=== PATIENT | male | born 1960 | race Hispanic/Latino ===

== ENCOUNTER 2017-07-22 14:43 | Inpatient (IN) | payer OTHER ==
--- NOTE | 2017-07-22 15:44 | RAD ---
CHEST ONE VIEW: Date: 07-22-17 Time: 4:34 p.m. History: Chest pain. FINDINGS: Comparison is made with exam dated 06-10-12. The heart size is normal. The aorta is tortuous. The lungs are expanded without focal areas of consol idation, pneumothorax, or pleural effusions. IMPRESSION: No radiographic evidence of acute cardiopulmonary process. POS: [facility]
[2017-07-22 16:31] LABS: #Eosinphils 0.2 thou/uL (0.0-0.7); #Lymphocytes 2.1 thou/uL (1.20-3.40); #Monocytes 0.4 thou/uL (0.11-0.59); #Neutrophils 6.3 thou/uL (1.40-6.50); %Basophils 0.3 % (0.0-1.0); %Eosinophils 1.9 % (0.0-10.0); %Lymphocytes 23.6 % (21.0-51.0); %Monocytes 4.6 % (0.0-10.0); Hematocrit 43.2 % (42.0-52.0); Mean Platelet Volume 8.3 fL (7.4-10.4); Red Blood Cell (RBC) Count 4.98 mill/uL (4.70-6.10)
[2017-07-22 16:53] LABS: ALT (SGPT) 22 U/L (8-55); AST (SGOT) 17 U/L (5-34); Alkaline Phosphatase 100 U/L (40-150); Anion Gap 14 mmol/L (10-20); BUN (Urea Nitrogen) 26 mg/dL (8.4-25.7); Bilirubin, Total 0.3 mg/dL (0.2-1.2); CK (CPK) 100 U/L (30-200); Calc. Creatinine Clearance 0 mL/min (70-130); Carbon Dioxide 26 mmol/L (22-29); Chloride 103 mmol/L (98-107); Estimated GFR-MDRD 48; Lipase 16 U/L (8-78); Protein, Total 8.7 g/dL (6.0-8.3)
[2017-07-22] MEDS ORDERED: Nitroglycerin 0.4 MG TAB (25 Tab Bottle) ONE (18:04)
[2017-07-22] MEDS ORDERED: Ondansetron ODT 4 MG TAB SL PRN (19:23)
[2017-07-22] MEDS ORDERED: Ondansetron HCl/PF 4 MG/2 ML Vial IVP PRN (19:23)
[2017-07-22 20:21] LABS: Troponin I 0.055 ng/mL (< 0.028)
[2017-07-22] MEDS ORDERED: Dextrose 5% in Water 1,000 ML IV PRN (20:48)
[2017-07-22] MEDS ORDERED: Dextrose 50% Abboject 50 ML SYRINGE SLOW IVP PRN (20:48)
[2017-07-22] MEDS ORDERED: HumaLOG 300 UNITS/3 ML VIAL SC PRN (20:48)
[2017-07-22] MEDS ORDERED: Losartan Potassium 25 MG TAB PO SCH (21:00)
[2017-07-22] MEDS ORDERED: metFORMIN 500 MG TAB PO SCH (21:00)
--- NOTE | 2017-07-22 21:23 | HP ---
PRIMARY CARE PHYSICIAN: Aminah Tariq M.D. CHIEF COMPLAINT: Chest pain. HISTORY OF PRESENT ILLNESS: Mr. Aleman is a pleasant 56-year-old gentleman who was seen at [facility] on 07/22/2017. He reports developing retrosternal chest discomfort yeste rday. He describes it as a sensation of tightness, radiating to his shoulders and arms. He also rep orts pain in his ear. He reports that it was on and off. No known aggravating factors, but relieved by nitrates in the emergency room, accompanied by shortness of breath, lightheadedness, and diaphore sis. He came to the emergency room because of ongoing chest discomfort. He has not been taking his medications for 1 week because he ran out of his medications and did not g et a chance to get it refilled. PAST MEDICAL HISTORY: Significant for diabetes mellitus type 2 and hypertension. PAST SURGICAL HISTORY: Significant for appendectomy and rectal abscess surgery. SOCIAL HISTORY: Occasional alcohol use. No history of tobacco use or recreational drug use. FAMILY HISTORY: He has a brother who had a coronary artery bypass graft. ALLERGIES: No known drug allergies. CURRENT MEDICATIONS: As mentioned earlier, he has not been taking his medications. He is supposed t o be on metformin, Nexium, and losartan. PHYSICAL EXAMINATION: GENERAL: Mr. Aleman is awake and alert, not in acute distress. VITAL SIGNS: Blood pressure is 134/85, pulse is 70, he is breathing at rate of 16, and saturating 95 % on room air. He is afebrile. EYES: No scleral icterus. No conjunctival pallor. ENT: Moist mucosal membranes. No oropharyngeal erythema or exudates. NECK: Supple, nontender, normal range of movement. Trachea is midline. RESPIRATORY: Accessory muscles of breathing are not active. Chest wall movements are symmetric bila terally. LUNGS: Clear to auscultation without wheeze, rhonchi or crepitations. CARDIOVASCULAR: S1 and S2 are heard, tachycardic. Peripheral pulses palpable. No carotid bruit, no pericardial rub. ABDOMEN: Soft, nontender, bowel sounds heard, no hepatomegaly, no splenomegaly. NEUROLOGIC: Cranial nerves II-XII are intact. Deep tendon reflexes are 2+. PSYCHIATRIC: Normal mood, normal affect, patient is oriented to person, place, and time. SKIN: No rashes or subcutaneous nodules. MUSCULOSKELETAL: Power is 5/5 in all 4 extremities. Normal range of movement at all major extremity joints. LABORATORY DATA: Mr. Aleman labs and investigations were reviewed. I reviewed his electrocardiog ochoa, which shows normal sinus rhythm. He has T-wave inversions in the anterior lateral leads as well as inferior leads. I also reviewed his chest x-ray, which does not show any pulmonary infiltrates. He has a normal CBC, normal electrolytes, elevated blood urea nitrogen of 26, elevated creatinine of 1.50, last known creatinine normal at 1.13 on 10/30/2016, indeterminate troponin I of 0.055, unremar kable liver profile and normal lipase. ASSESSMENT AND PLAN: Mr. Aleman is a pleasant 56-year-old gentleman who was seen at [facility] on 07/22/2017. His problem list includes: 1. Chest pain: His presentation is concerning for cardiac chest pain. He does have EKG changes. H e will be admitted to the hospital for telemetry monitoring. I will also request a nuclear stress te st. Further workup depending on the outcome of the test. 2. Acute kidney injury: We will provide hydration for most likely prerenal acute renal failure. We will recheck creatinine and electrolytes. 3. Diabetes mellitus type 2, start Accu-Cheks, insulin sliding scale. 4. Hypertension: Monitor vital signs, titrate antihypertensives as needed. Many thanks for allowing me to participate in your patient's care. Please feel free to contact me wi th any questions or concerns. LEVEL OF RISK: High. LEVEL OF COMPLEXITY: High.
[2017-07-22 21:40] VITALS: BMI 27.2
[2017-07-22] MEDS: Sodium Chloride 0.9% 1,000 ML IV SCH (22:06)
[2017-07-22] MEDS: Acetaminophen 325 MG TAB PO PRN (22:11)
[2017-07-22 22:54] LABS: Troponin I 0.056 ng/mL (< 0.028)
[2017-07-22] MEDS: Nitroglycerin 0.4 MG TAB (25 Tab Bottle) PO PRN ×3 (23:01→23:14)
[2017-07-22] MEDS ORDERED: Enoxaparin Sodium 40 MG/0.4 ML SYRINGE SC SCH (23:15)
[2017-07-22] MEDS: Nitroglycerin 2% Ointment 1 INCH/1 GM Packet TOP SCH (23:23)
[2017-07-23] MEDS: Nitroglycerin 2% Ointment 1 INCH/1 GM Packet TOP SCH ×2 (04:01→12:47)
[2017-07-23 04:33] LABS: #Basophils 0.1 thou/uL (0.0-0.2); #Eosinphils 0.2 thou/uL (0.0-0.7); #Monocytes 0.3 thou/uL (0.11-0.59); #Neutrophils 5.2 thou/uL (1.40-6.50); %Basophils 0.7 % (0.0-1.0); %Eosinophils 2.9 % (0.0-10.0); %Lymphocytes 25.5 % (21.0-51.0); %Monocytes 3.7 % (0.0-10.0); Hematocrit 37.6 % (42.0-52.0); Mean Platelet Volume 8.5 fL (7.4-10.4); Red Blood Cell (RBC) Count 4.33 mill/uL (4.70-6.10); White Blood Cell (WBC) Count 7.8 thou/uL (4.8-10.8)
[2017-07-23 04:52] LABS: Anion Gap 9 mmol/L (10-20); BUN (Urea Nitrogen) 24 mg/dL (8.4-25.7); Calc. Creatinine Clearance 98 mL/min (70-130); Calcium 8.7 mg/dL (7.8-10.44); Carbon Dioxide 25 mmol/L (22-29); Chloride 106 mmol/L (98-107); Estimated GFR-MDRD 88
[2017-07-23 04:59] LABS: Troponin I 0.087 ng/mL (< 0.028)
[2017-07-23] MEDS: Acetaminophen 325 MG TAB PO PRN (07:46)
[2017-07-23] MEDS ORDERED: metFORMIN 500 MG TAB PO SCH (08:00)
[2017-07-23] MEDS ORDERED: Losartan Potassium 25 MG TAB PO SCH (09:00)
[2017-07-23] MEDS ORDERED: FLU VACC QS2017-18 36 mo. & older 0.5 ML SYRINGE IM ONE (09:00)
[2017-07-23] MEDS ORDERED: Aspirin 325 MG TAB PO SCH (09:00)
--- NOTE | 2017-07-23 09:54 | PDOC.PN ---
- Subjective Encounter Start Date: 07/23/17 Encounter Start Time: 08:52 Subjective: Seen and examined developed STEMI while undergoing stress test - Objective Vital Signs & Weight: Vital Signs (12 hours) Temp Pulse Resp BP BP Pulse Ox 07/23/17 07:21 97.7 F 63 16 122/65 99 07/23/17 03:39 98.0 F 70 16 122/76 99 07/23/17 01:59 97 07/22/17 23:25 69 16 134/74 97 07/22/17 23:14 76 134/77 97 07/22/17 23:06 71 146/85 H 07/22/17 22:58 76 16 223/89 H 98 I&O: 07/22/17 07/23/17 07/24/17 06:59 06:59 06:59 Intake Total 1019 Output Total 325 Balance 694 Result Diagrams: 07/23/17 11:53 07/23/17 03:38 Additional Labs: Accuchecks 07/22/17 20:49 POC Glucose 166 H Phys Exam - Physical Examination Constitutional: NAD HEENT: PERRLA, moist MMs, sclera anicteric, TM's clear, oral pharynx no lesions Neck: no nodes, no JVD, supple, full ROM Respiratory: no wheezing, no rales, no rhonchi, clear to auscultation bilateral Cardiovascular: RRR, no significant murmur, no rub Gastrointestinal: soft, non-tender, no distention, positive bowel sounds Musculoskeletal: no edema, pulses present Dx/Plan (1) STEMI (ST elevation myocardial infarction) Status: Acute (2) 3-vessel coronary artery disease Status: Acute (3) Diabetes 1.5, managed as type 2 Code(s): E10.9 - TYPE 1 DIABETES MELLITUS WITHOUT COMPLICATIONS Status: Acute - Plan plan discussed w/ family, PT/OT, public health social worker Emergent CABG per cardiology/[facility] * .
[2017-07-23] MEDS ORDERED: Heparin 1000 UNIT/NS 500ML(OR) 1,000 ML ONE (10:54)
[2017-07-23] MEDS ORDERED: Heparin 10,000 UNITS/1 ML VIAL ONE (11:21)
[2017-07-23] MEDS ORDERED: Nitroglycerin 50 MG/250 ML BOT 250 ML ONE (11:21)
[2017-07-23] MEDS ORDERED: Heparin 1000 UNIT/NS 500ML(OR) 500 ML ONE (11:24)
[2017-07-23] MEDS ORDERED: Nitroglycerin 0.4 MG TAB (25 Tab Bottle) SL PRN (11:37)
[2017-07-23] MEDS ORDERED: traMADol HCl 50 MG TAB PO PRN (11:37)
[2017-07-23] MEDS ORDERED: Acetaminophen/Codeine 30-300mg Tablet PO PRN ×2 (11:37)
[2017-07-23] MEDS ORDERED: Sodium Chloride 0.9% 1,000 ML IV SCH (11:45)
[2017-07-23] MEDS ORDERED: Heparin 10,000 UNITS/ 10 ML VIAL SLOW IVP SCH (11:45)
[2017-07-23] MEDS ORDERED: Heparin 25,000 units/D5W 500 ML IVPB SCH (11:45)
[2017-07-23] MEDS ORDERED: Sodium Chloride 0.9% 200 ML IV SCH (11:45)
[2017-07-23 11:57] LABS: Hematocrit 41.4 % (42.0-52.0)
[2017-07-23] MEDS ORDERED: Communication Order-Pharmacy FS ONE (12:18)
[2017-07-23] MEDS ORDERED: Nitroglycerin 4.9 GM Bottle ONE (12:20)
[2017-07-23 12:27] LABS: PTT 177.9 SEC (22.9-36.1)
--- NOTE | 2017-07-23 12:32 | CON ---
DATE OF CONSULTATION: 07/23/2017 REASON FOR CONSULTATION: ST segment elevation. REFERRING PROVIDER: Dr. Khalil. HISTORY OF PRESENT ILLNESS: Mr. Aleman is a pleasant 56-year-old gentleman with past medical hist ory of diabetes mellitus and hypertension who recently complained of chest pain. He states he has crouch d an intermittent chest pain over the last several weeks. The pain was described as retrosternal wit h radiation to his neck and jaw. His CK and troponins were in the indeterminate range. He underwent a noninvasive stress study after his EKG suggested LVH. He did well. Shortly after the stress, he developed ST segment elevation and was brought urgently for coronary angiography. PAST MEDICAL HISTORY: As above. PAST SURGICAL HISTORY: Appendectomy and rectal abscess. SOCIAL HISTORY: No current tobacco or alcohol use. FAMILY HISTORY: Positive for CAD. ALLERGIES: None. HOME MEDICATIONS: He is off all medications. REVIEW OF SYSTEMS: Ten-point review of systems is reviewed and as above, otherwise negative. PHYSICAL EXAMINATION: GENERAL: Patient is a pleasant male who is in no acute distress. The patient appears his stated age . VITAL SIGNS: Blood pressure 122/65, pulse 62, temperature 97.7 NEUROLOGIC: The patient is alert and oriented times 3 with no focal neurologic deficits. HEENT: Sclerae without icterus. Mouth has moist mucous membranes with normal pallor. NECK: No JVD. Carotid upstroke brisk. No bruits bilaterally. LUNGS: Clear to auscultation with unlabored respirations. BACK: No scoliosis or kyphosis. CARDIAC: Regular rate and rhythm with normal S1 and S2. No S3 or S4 noted. No significant rubs, mu rmurs, thrills, or gallops noted throughout the precordium. PMI is not displaced. There is no nino ternal heave. ABDOMEN: Soft, nontender, nondistended. No peritoneal signs present. No hepatosplenomegaly. No ab normal striae. EXTREMITIES: 2+ femoral and 2+ dorsalis pedis pulses. No cyanosis, clubbing, or edema. SKIN: No gross abnormalities. PERTINENT LABORATORY DATA: Peak troponin 0.08. IMPRESSION: ST segment elevation myocardial infarction. RECOMMENDATIONS: The patient was brought urgently for coronary angiography. I consent the patient f or the procedure, risks include but are not limited. I discussed the procedure in full detail with the patient. The risks of the procedure were also disc ussed. The risks of the procedure include but are not limited to the following: , stroke, [place], need for emergency surgery, loss of limb, bleeding, and infection, as well as a reaction to the dye c ausing kidney failure and needing long-term dialysis. I also discussed the risks of PCI to include a ll of the above including coronary dissection and perforation in addition to acute stent thrombosis a nd restenosis. All questions about the procedure were answered. Given the above, the patient agreed to proceed with coronary angiography and possible PCI. After angiography was performed urgently. He was found to have severe 3-vessel disease. He was pain free with resolution of his ST segments. CV Surgery was consulted. He was placed on IV heparin in addition to nitroglycerin and placed in the ICU. Again, he is currently pain free with surgery antic ipated.
--- NOTE | 2017-07-23 12:37 | EKG ---
Test Reason : STAT Blood Pressure : / mmHG Vent. Rate : 066 BPM Atrial Rate : 066 BPM P-R Int : 160 ms QRS Dur : 094 ms QT Int : 414 ms P-R-T Axes : 084 016 -50 degrees QTc Int : 434 ms Normal sinus rhythm Inferior infarct , age undetermined cannot be excluded Abnormal ECG Confirmed by OLAYINKA CHERRY ([id number]) on 07/23/2017 12:36:49 PM Referred By: SARAH Confirmed By:OLAYINKA CHERRY
[2017-07-23] MEDS: Sodium Chloride 0.9% 1,000 ML IV SCH ×2 (12:45→22:07)
--- NOTE | 2017-07-23 12:57 | CON ---
DATE OF CONSULTATION: 07/23/2017 REASON FOR CONSULTATION: Evaluation for urgent coronary artery bypass surgery. PERTINENT HISTORY: The patient is a 56-year-old male who presented yesterday with acute coronary syndrome. Peak troponin I appears to have been 0.087. He did have chest pain through the evening. This morning, during nuclear stress test, he had return of significant pain associated with dramatic interior ST- segment elevation. He was immediately taken to the catheterization lab with findings of severe 3-vessel disease including a subtotal distal RCA stenosis. EKG changes and pain did resolve with intravenous heparin and nitroglycerin. The patient is now referred for urgent coronary artery bypass surgery. PAST MEDICAL HISTORY: 1. Hypertension. 2. Diabetes. 3. GERD. PAST SURGICAL HISTORY: 1. I and D perirectal abscess. 2. Laparoscopic appendectomy. ALLERGIES: None. SOCIAL HISTORY: Non-smoker. Occasional alcohol use. FAMILY HISTORY: Noncontributory for coronary artery disease. REVIEW OF SYSTEMS: No history of documented dyslipidemia, kidney or liver disease, TIA or CVA, or claudication. MEDICATIONS PRIOR TO ADMISSION: Nexium, metformin, losartan. CURRENT MEDICATIONS: Aspirin, heparin and nitroglycerin drips, losartan, metformin, Protonix, and multiple p.r.n. medications. LABORATORY DATA AND X-RAY FINDINGS: Creatinine 0.89. Hemoglobin 14.1. Platelet count 253,000. Chest x-ray shows no acute process. PHYSICAL EXAMINATION: VITAL SIGNS: Height 5 feet 6 inches, weight 168 pounds, blood pressure 170/82, heart rate 72, temperature 97.7. GENERAL: A well-developed, well-nourished male, currently in no acute distress. He is fully oriented. He is a partial Singaporean speaker with additional details provided by his who is more fluent in Singaporean. HEENT: Grossly unremarkable. NECK: Without JVD or adenopathy. LUNGS: Clear anteriorly. HEART: Regular rate and rhythm without murmur or rub. ABDOMEN: Soft and nontender, without palpable mass. EXTREMITIES: Without edema. VASCULAR: Palpable radial pulses. Right femoral arterial calf sheath is in place. Left femoral pulse is palpable. Popliteal and ankle pulses are palpable bilaterally. No carotid bruits were appreciated. Abdominal aorta is palpably nonenlarged. NEUROLOGIC: No focal deficits. IMPRESSION: Aborted inferior ST-segment elevation myocardial infarction, severe 3-vessel coronary artery disease, and unknown left ventricular function. RECOMMENDATIONS: Obtain immediate transthoracic echo. Should this document reasonably preserved left ventricular function, proceed to urgent coronary artery bypass surgery this afternoon. The indications, benefits, alternatives, and risks of coronary artery bypass surgery were explained in detail to the patient and his . All questions were answered. The patient agrees to proceed without reservations. TARA
[2017-07-23] MEDS ORDERED: Nitroglycerin 50 MG/250 ML BOT 250 ML IVPB SCH (13:15)
--- NOTE | 2017-07-23 14:00 | NM ---
REST ONLY MYOCARDIAL PERFUSION EVALUATION: INDICATION: Chest pain. RADIOPHARMACEUTICAL: 9.8 mCi of Technetium 99m sestamibi IV. FINDINGS: Rest-only images demonstrate a large-size radiotracer defect involving the inferior wall and inferior aspect. The patient had suspicious EKG changes during the examination and the examination was termi nated so the patient could be transported to the recyclable materials sorter by Dr. mSith. IMPRESSION: Abnormal rest-only evaluation with a large defect involving the inferior wall and apex. POS: [facility]
[2017-07-23] MEDS ORDERED: Vecuronium 10 MG VIAL ONE (14:22)
[2017-07-23] MEDS ORDERED: Lidocaine 2% PF 100 mg/5 ml Syringe ONE (14:22)
[2017-07-23] MEDS ORDERED: Protamine Sulfate 250 MG/25 ML VIAL ONE (14:22)
[2017-07-23] MEDS ORDERED: Papaverine 60 MG/2 ML VIAL ONE (14:22)
[2017-07-23] MEDS ORDERED: Cardioplegic Soln 1,000 ML BAG ONE (14:22)
[2017-07-23] MEDS ORDERED: Thrombin 5000 UNITS/5 ML VIAL ONE (14:22)
[2017-07-23] MEDS ORDERED: Aminocaproic Acid 5 GM/20 ML VIAL ONE (14:22)
[2017-07-23] MEDS ORDERED: Magnesium 5 GM/10 ML VIAL ONE (14:22)
[2017-07-23] MEDS ORDERED: Propofol 200 MG/20 ML VIAL ONE (14:22)
[2017-07-23] MEDS ORDERED: Mannitol 12.5 GM/50 ML ONE (14:22)
[2017-07-23] MEDS ORDERED: Heparin 30,000 units/30 ml VIAL ONE (14:22)
[2017-07-23] MEDS ORDERED: Sodium Bicarb 50 MEQ/50 ML Abboject 8.4% SYRINGE ONE (14:22)
[2017-07-23] MEDS ORDERED: Lidocaine 1% PF 5 ML VIAL ONE (14:22)
[2017-07-23] MEDS ORDERED: PHENYLEPHRINE-NS 100 MCG/ML 10 ML SYRINGE ONE ×2 (14:22→18:46)
[2017-07-23] MEDS ORDERED: Heparin 5,000 UNITS/ML VIAL ONE (14:22)
[2017-07-23] MEDS ORDERED: DOPamine 400 MG/10 ML VIAL ONE (14:22)
[2017-07-23] MEDS ORDERED: Calcium Chloride 1 GM/10 ML Abboject SYRINGE ONE (14:22)
[2017-07-23] MEDS ORDERED: Potassium Chloride 60 MEQ/30 ML VIAL ONE (14:22)
[2017-07-23] MEDS ORDERED: CEFAZOLIN/Water 2 GM/20 ML SYRINGE SLOW IVP SCH (15:00)
[2017-07-23] MEDS ORDERED: CEFAZOLIN 2 GM in Sodium Chloride 0.9% 100 ML IVPB SCH (15:00)
[2017-07-23] MEDS ORDERED: Iopamidol 370 76% 100 ML VIAL ONE (15:42)
[2017-07-23] MEDS ORDERED: Heparin 10,000 UNITS/1 ML VIAL 30,000 UNITS in Sodium Chloride 0.9% 1,000 ML IVPB SCH (15:45)
[2017-07-23] MEDS ORDERED: Midazolam HCl 5 mg/5 ml Vial ONE (16:04)
[2017-07-23] MEDS ORDERED: Fentanyl 250 MCG/5 ML VIAL ONE (16:04)
[2017-07-23] MEDS ORDERED: ADENOSINE 60 MG/20 ML VIAL ONE (16:23)
[2017-07-23] MEDS ORDERED: Insulin Regular 300 UNITS/3 ML VIAL ONE (17:10)
[2017-07-23] MEDS ORDERED: Albumin 5% 0 ML ONE (17:11)
[2017-07-23] MEDS ORDERED: Rocuronium Bromide 50 MG/5 ML VIAL ONE (18:46)
[2017-07-23] MEDS ORDERED: Nitroglycerin 50 MG/250 ML BOT 250 ML IVPB PRN (20:46)
[2017-07-23] MEDS ORDERED: Guaifenesin DM 100-10/5 ML UDCUP PO PRN (20:46)
[2017-07-23] MEDS ORDERED: Bisacodyl 5 MG TAB PO PRN (20:46)
[2017-07-23] MEDS ORDERED: Promethazine HCl 25 MG/ML VIAL IM PRN (20:46)
[2017-07-23] MEDS ORDERED: Post-Op Insulin Drip Protocol IVPB ONE (20:46)
[2017-07-23] MEDS ORDERED: hydrALAZINE 20 MG/ML VIAL SLOW IVP PRN (20:46)
[2017-07-23] MEDS ORDERED: DOPamine 400 MG/D5W 250 ML 250 ML IVPB PRN (20:46)
[2017-07-23] MEDS ORDERED: HYDROcodone/Acetaminophen 5/325 mg Tablet PO PRN ×2 (20:46)
[2017-07-23] MEDS ORDERED: Acetaminophen 325 MG TAB PO PRN (20:46)
[2017-07-23] MEDS ORDERED: Mag-Al 1200 mg/1200 mg/30 ML UDCUP PO PRN (20:46)
[2017-07-23] MEDS ORDERED: Phenylephrine 10 MG/NS 250 ML 250 ML IVPB PRN (20:46)
[2017-07-23] MEDS ORDERED: Morphine 2 mg/2ml in 0.9% NaCl PF SYRINGE SLOW IVP PRN (20:46)
[2017-07-23] MEDS ORDERED: Bisacodyl 10 MG SUPP PR PRN (20:46)
[2017-07-23] MEDS ORDERED: Fentanyl 100 MCG/2 ML VIAL SLOW IVP PRN ×2 (20:46)
[2017-07-23] MEDS ORDERED: Ondansetron HCl/PF 4 MG/2 ML Vial IVP PRN (20:46)
[2017-07-23] MEDS ORDERED: Norepinephrine 8 MG/0.9% NS 250 ML IVPB PRN (20:46)
[2017-07-23] MEDS ORDERED: Enoxaparin Sodium 40 MG/0.4 ML SYRINGE SC SCH (21:00)
[2017-07-23 21:18] LABS: Mechanical Tidal Volume 500 ml; Oxyhemoglobin 97.6 % (94.0-97.0); Sodium 142 mmol/L (135-148); Vent YES
[2017-07-23 21:19] LABS: Mode SIMV; Pressure Support 10 cmH2O
[2017-07-23] MEDS ORDERED: Dextrose 5% in Water 1,000 ML IV PRN (21:24)
[2017-07-23] MEDS ORDERED: Dextrose 50% Abboject 50 ML SYRINGE SLOW IVP PRN (21:24)
[2017-07-23] MEDS ORDERED: Fentanyl 20 MCG/ML 250 ML IVPB SCH (21:34)
[2017-07-23] MEDS ORDERED: DISCONTINUE PREVIOUS NARCOTIC PAIN MEDICATIONS AND BENZODIAZEPINES FS SCH (21:34)
[2017-07-23] MEDS ORDERED: Lorazepam 2 MG/ML VIAL SLOW IVP PRN (21:34)
[2017-07-23] MEDS ORDERED: Propofol 1,000 MG/100 ML VIAL IV PRN (21:34)
[2017-07-23] MEDS ORDERED: Morphine 2 MG/ML SYRINGE IVP PRN (21:38)
[2017-07-23 21:43] LABS: PTT 28.5 SEC (22.9-36.1); Prothrombin Time 15.5 SEC (12.0-14.7)
[2017-07-23] MEDS ORDERED: Magnesium 2 GM/NS 0.9% 50 ML 2 GM in Premix Bag 1 BAG IVPB SCH (21:45)
[2017-07-23] MEDS ORDERED: Ventilator Sedation Protocol 1 EACH FS SCH (21:45)
[2017-07-23] MEDS ORDERED: Magnesium 2 GM/NS 0.9% 100 ML 2 GM in Premix Bag 1 BAG IVPB SCH (21:45)
[2017-07-23] MEDS ORDERED: Amiodarone In Dextrose,Iso-Osm 200 ML IVPB SCH (21:45)
[2017-07-23] MEDS ORDERED: Amiodarone HCl 150 MG, Admixture Fee 1 EACH in Dextrose 5% in Water 100 ML IVPB SCH ×3 (21:45)
[2017-07-23 21:49] LABS: Mean Platelet Volume 8.2 fL (7.4-10.4); Red Blood Cell (RBC) Count 4.12 mill/uL (4.70-6.10); White Blood Cell (WBC) Count 21.3 thou/uL (4.8-10.8)
[2017-07-23 21:52] LABS: Anion Gap 12 mmol/L (10-20); BUN (Urea Nitrogen) 15 mg/dL (8.4-25.7); Calc. Creatinine Clearance 106 mL/min (70-130); Calcium 7.8 mg/dL (7.8-10.44); Carbon Dioxide 22 mmol/L (22-29); Chloride 108 mmol/L (98-107); Estimated GFR-MDRD Greater than 90
[2017-07-23] MEDS: Potassium Chloride 20 MEQ/100 ML PREMIX BAG IVPB PRN (22:06)
[2017-07-23] MEDS: Famotidine/PF 20 mg/2ml Vial SLOW IVP SCH (22:07)
[2017-07-23 22:08] LABS: Band 22 % (5-11); Neutrophil 67 % (42-75)
--- NOTE | 2017-07-23 22:15 | RAD ---
PORTABLE CHEST 07/23/17 PROVIDED CLINICAL HISTORY: Post open heart. FINDINGS: Comparison 07/22/17. Interval median sternotomy changes. Mediastinal and left pleural drain noted. Endotracheal tube seen with tip in the region of the mari. Right sided central line is noted, the tip of which projects in the expected location of the right atrium. Lungs appear clear. No pleural fluid or pneumothorax evid ent. The supine nature of the study limits sensitivity for detection of pleural fluid or pneumothora x. IMPRESSION: Interval postoperative change with lines and tubes as above. POS: [facility]
--- NOTE | 2017-07-23 22:39 | OP ---
PREOPERATIVE DIAGNOSES: Aborted inferior ST segment elevation myocardial infarction, severe three-vessel coronary artery disease, and mild reduction in left ventricular function. POSTOPERATIVE DIAGNOSES: Aborted inferior ST segment elevation myocardial infarction, severe three-vessel coronary artery disease, and mild reduction in left ventricular function. SURGEON: Dr. Chowdhury. OUTSOLE CASER: Dr. Madison. SPONGE AND NEEDLE COUNTS: Correct. ANESTHESIA: General. OPERATIONS PERFORMED: Coronary artery bypass grafting x4 with left internal mammary artery to left anterior descending, left radial artery to diagonal, reversed greater saphenous vein to obtuse marginal, and reversed greater saphenous vein to distal right coronary artery. FINDINGS AT OPERATION: Moderate cardiomegaly. Hyperinflated lungs that met in the midline. Left-sided coronary vessels were small and diffusely diseased. At the sites of the distal anastomosis the LAD was 1.0 mm and intramyocardial, the diagonal 1.0 mm, the OM 1-1.25 mm, and the distal RCA 2-2.5 mm. Left internal mammary artery was somewhat small; however, had excellent flow and was a good size match for the small LAD. Left radial artery and greater saphenous vein were adequate conduits. DESCRIPTION OF OPERATION: The patient was taken to the operating room. Following the induction of general endotracheal anesthesia, the patient was prepped and draped in the usual sterile fashion. Left radial artery was harvested down. Preoperative Albin's test as well as intraoperative pulse oximetry demonstrated adequate supply to the left hand provided by the ulnar artery. Simultaneously, the left thigh greater saphenous vein was harvested using the endoscopic technique. Sternotomy was performed. Left internal mammary artery was dissected in extrapleural fashion. Heparin dose was given and following assurance of an adequate ACT, the patient was cannulated in standard fashion. Cardiopulmonary bypass was instituted. Locations of distal anastomoses were marked. Padded cross-clamp was applied with a single application and a single dose of cold blood cardioplegia given antegrade. The first vein graft was anastomosed in end-to-side fashion to the distal RCA just proximal to the bifurcation using a continuous 7-0 Prolene suture. In similar fashion, the second vein graft was established to the OM. The left radial artery was now anastomosed in end-to-side fashion to the diagonal using a continuous 7-0 Prolene suture. In similar fashion, the left internal mammary artery was anastomosed to the LAD. Both the mammary artery and radial artery pedicles were tacked to the epicardium using 6-0 Prolene sutures. Systemic rewarming had been begun. With the head down and gentle suction on the aortic vent, the aortic cross-clamp was removed. Cardioversion was not required. Partial clamp was placed on the ascending aorta with a single application and the 2 proximal vein graft anastomoses performed to punch holes using continuous 6-0 Prolene sutures. The proximal radial artery anastomosis was performed to the lerma of the OM vein graft using a continuous 7-0 Prolene suture. Partial clamp was removed and vein grafts deaired. Following full systemic rewarming, the patient was weaned from cardiopulmonary bypass without difficulty and following heparin reversal with Protamine, the patient was decannulated. Amicar had been used in standard fashion through the case. No intraoperative blood products were required. Pericardium was not closed. Kurt drains were positioned within the pericardial well and left pleural cavity. Sternum was reapproximated with interrupted #7 stainless steel wires. Linea alba and fascia were closed with running #1 Vicryl sutures followed by a closure of the subcutaneous tissues with a running 2-0 Vicryl suture. Skin was closed with a 3 -0 Vicryl subcuticular stitch. Prior to closure, vancomycin paste had been applied to the sternal halves. Platelet-enriched and platelet-poor plasma had also been applied to the sternal wound. The patient was taken to the ICU. TARA
[2017-07-23] MEDS: Ketorolac Tromethamine 30 MG/ML VIAL IVP SCH (23:49)
[2017-07-23] MEDS: CEFAZOLIN/Water 2 GM/20 ML SYRINGE SLOW IVP SCH (23:49)
[2017-07-24 03:05] LABS: #Lymphocytes 0.6 thou/uL (1.20-3.40); #Neutrophils 24.2 thou/uL (1.40-6.50); %Basophils 0.1 % (0.0-1.0); %Eosinophils 0.1 % (0.0-10.0); %Lymphocytes 2.3 % (21.0-51.0); Hematocrit 38.3 % (42.0-52.0); Mean Platelet Volume 8.4 fL (7.4-10.4); Red Blood Cell (RBC) Count 4.39 mill/uL (4.70-6.10); White Blood Cell (WBC) Count 25.9 thou/uL (4.8-10.8)
[2017-07-24 03:15] LABS: Anion Gap 9 mmol/L (10-20); BUN (Urea Nitrogen) 16 mg/dL (8.4-25.7); Calc. Creatinine Clearance 105 mL/min (70-130); Calcium 8.1 mg/dL (7.8-10.44); Carbon Dioxide 23 mmol/L (22-29); Chloride 108 mmol/L (98-107); Estimated GFR-MDRD Greater than 90
[2017-07-24] MEDS ORDERED: Amiodarone HCl 450 MG, Admixture Fee 1 EACH in Dextrose 5% in Water 250 ML IVPB SCH ×3 (04:00)
[2017-07-24] MEDS: Potassium Chloride 20 MEQ/100 ML PREMIX BAG IVPB PRN (04:29)
[2017-07-24] MEDS: Ketorolac Tromethamine 30 MG/ML VIAL IVP SCH ×4 (06:08→23:58)
[2017-07-24] MEDS: CEFAZOLIN/Water 2 GM/20 ML SYRINGE SLOW IVP SCH ×2 (06:09→14:49)
--- NOTE | 2017-07-24 06:33 | PRG ---
DATE OF SERVICE: Mr. Aleman underwent bypass surgery yesterday. His postoperative course was com plicated by PVCs. He was placed on amiodarone therapy. His blood pressure and heart rate have remai lorenza stable. The Levophed has been discontinued. He continues to be intubated. PHYSICAL EXAMINATION: VITAL SIGNS: Blood pressure 120/68, pulse 91, temperature afebrile. LUNGS: Clear to auscultation. CARDIAC: Regular rate and rhythm. ABDOMEN: Soft, nontender, nondistended. EXTREMITIES: No edema. NEUROLOGIC: He is currently intubated with mild sedation. PERTINENT LABORATORY DATA: Hemoglobin 13.4, creatinine 0.83. IMPRESSION: 1. Severe coronary artery disease. 2. Diabetes mellitus. 3. Premature ventricular contractions. RECOMMENDATIONS: The patient was placed on IV amiodarone last evening. At this point, we will let t he amiodarone finish, then monitor. This may have been related to a recent postop course. Would add p.o. amiodarone if needed, but at this point will observe. He may also benefit from low dose beta b locker therapy. We will add low dose metoprolol at 25 mg 1 p.o. q.a.m. Chest tube remains in place.
[2017-07-24 06:56] LABS: Sodium 138 mmol/L (135-148); Spontaneous Rate 19 min; Vent YES
[2017-07-24 06:57] LABS: Mode CPAP; Pressure Support 10 cmH2O
[2017-07-24] MEDS ORDERED: HYDROcodone/Acetaminophen 5/325 mg Tablet PO PRN (07:56)
[2017-07-24] MEDS ORDERED: Fentanyl 100 MCG/2 ML VIAL SLOW IVP PRN ×2 (07:57)
[2017-07-24] MEDS ORDERED: Aspirin 325 MG TAB PO SCH (08:00)
[2017-07-24] MEDS: HYDROcodone/Acetaminophen 5/325 mg Tablet PO PRN ×2 (08:09→14:49)
[2017-07-24] MEDS: Famotidine/PF 20 mg/2ml Vial SLOW IVP SCH ×2 (08:10→20:04)
[2017-07-24] MEDS ORDERED: cefTRIAXone\\ROCEPHIN 1 GM in Sodium Chloride 0.9% 100 ML IVPB SCH (08:15)
[2017-07-24] MEDS ORDERED: cefTRIAXone\\ROCEPHIN 1 GM, Syringe 0.4 ML in Sterile Water 9.6 ML SLOW IVP SCH (09:00)
[2017-07-24] MEDS: Sodium Chloride 0.9% 1,000 ML IV SCH (09:04)
[2017-07-24 09:10] LABS: Hematocrit 36.8 % (42.0-52.0)
[2017-07-24 09:19] LABS: Magnesium 2.3 mg/dL (1.6-2.6)
--- NOTE | 2017-07-24 09:20 | CON ---
DATE OF CONSULTATION: 07/24/2017 REASON FOR CONSULTATION: IMCU post-CABG. HISTORY OF PRESENT ILLNESS: A 56-year-old, pleasant gentleman who sees Dr. Tariq as his primary care physician. He presented to the hospital with chest pain, tightness in the chest, sh ortness of breath and shoulder pain. He was seen by Cardiology, taken to the cath and was found to have coronary artery disease, severe fo r which he underwent bypass. He was extubated this morning. He says he does not smoke. No history of TB, pneumonia or bronchial asthma. 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 PAST MEDICAL HISTORY: Pertinent for diabetes and hypertension. PAST SURGICAL HISTORY: Appendix, rectal abscess. SOCIAL HISTORY: Minimal alcohol, no tobacco history. All records reviewed. SOCIAL/FAMILY HISTORY: Otherwise, 10-point negative. PHYSICAL EXAMINATION: GENERAL: Post-extubation, chest pain, shoulder pain. VITAL SIGNS: Pulse 89, blood pressure 120/80, respiratory 18, O2 saturation 100%. CHEST: Chest reveals no crackles, rubs or wheezing. CARDIAC: Normal S1-S2. No gallops. ABDOMEN: Soft, no masses. LABORATORY DATA: White count 25,000, H&H 13 and 38, platelet count of 263, pO2 124, PCO2 35, pH 7.39 . Post-extubation his electrolytes are normal. Chest x-ray shows a questionable left retrocardiac density. IMPRESSION: 1. Status post coronary artery disease status post coronary artery bypass graft. 2. Retrocardiac density. 3. Leukocytosis. 4. Diabetes. 5. Possibly pneumonia. PLAN: I reviewed his home medication and previous chart. The plan at this stage is to continue neb treatments, broad-spectrum antibiotics and supportive care and PT. 70 minutes were spent at the bedside on the patient while in the unit.
--- NOTE | 2017-07-24 09:30 | RAD ---
CHEST 1 VIEW: HISTORY: Open heart surgery. COMPARISON: Chest 1 view from prior day. FINDINGS: Endotracheal tube tip out to the mari 3 cm. Central venous catheter tip in the right atrium. Ther e are multiple mediastinal drains. Small left effusion. IMPRESSION: Similar appearance to the postoperative chest. No complications. POS: [facility]
--- NOTE | 2017-07-24 14:29 | EKG ---
Test Reason : Blood Pressure : / mmHG Vent. Rate : 117 BPM Atrial Rate : 117 BPM P-R Int : 154 ms QRS Dur : 100 ms QT Int : 350 ms P-R-T Axes : 065 018 -55 degrees QTc Int : 488 ms Sinus tachycardia Inferior infarct (cited on or before 22-JUL-2017) T wave abnormality, consider lateral ischemia ACUTE FL / STEMI Abnormal ECG Confirmed by OLAYINKA CHERRY ([id number]) on 07/24/2017 2:28:54 PM Referred By: MICAH Confirmed By:OLAYINKA CHERRY
[2017-07-24] MEDS ORDERED: Insulin Detemir 100 UNITS/ML 9 UNITS in Pre-Filled Syringe 1 EACH SC SCH (17:45)
--- NOTE | 2017-07-24 19:52 | PDOC.PN ---
- Subjective Encounter Start Date: 07/24/17 Encounter Start Time: 13:30 Patient seen and examined. No new complaints. No overnight events. Pain controlled. - Objective MAR Reviewed: Yes Vital Signs & Weight: Vital Signs (12 hours) Temp Pulse Resp Pulse Ox 07/24/17 18:18 83 22 H 97 07/24/17 16:00 98.5 F 07/24/17 13:08 83 18 07/24/17 12:00 98.3 F 07/24/17 08:00 98.3 F 88 24 H 98 Weight Weight 165 lb 12.602 oz Most Recent Monitor Data Heart Rate from ECG 98 NIBP 118/57 NIBP BP-Mean 86 Respiration from ECG 23 SpO2 97 I&O: 07/23/17 07/24/17 07/25/17 06:59 06:59 06:59 Intake Total 1019 1601.9 1823 Output Total 325 1860 640 Balance 694 -258.1 1183 Result Diagrams: 07/25/17 05:00 07/25/17 05:00 Additional Labs: Accuchecks 07/24/17 07/24/17 07/24/17 17:38 16:11 14:37 POC Glucose 110 120 H 141 H 07/24/17 07/24/17 07/24/17 12:39 11:10 09:59 POC Glucose 120 H 104 121 H 07/24/17 07/24/17 07/24/17 08:45 08:07 05:47 POC Glucose 140 H 139 H 145 H 07/24/17 07/24/17 07/24/17 04:34 03:22 02:12 POC Glucose 132 H 133 H 116 H 07/24/17 07/23/17 07/23/17 00:16 23:32 22:24 POC Glucose 137 H 148 H 179 H 07/23/17 07/23/17 21:10 20:11 POC Glucose 182 H 207 H EKG Reviewed by me: Yes (Tele SR) Phys Exam - Physical Examination Constitutional: NAD Respiratory: no wheezing, no rales, no rhonchi Symmetrical Cardiovascular: RRR, no rub no heaves/pulsations Gastrointestinal: soft, non-tender, no distention, positive bowel sounds Musculoskeletal: no edema Neurological: non-focal, moves all 4 limbs Psychiatric: normal affect, A&O x 3 Dx/Plan - Plan DVT proph w/SCDs IMPRESSION: 1. CP/ACS 2. CAD s/p emergent CABG 3. HTN 4. DM2 5. GERD 6. DEANN - resolved. PLAN: * Cont post op care * Cardio/CT following * Cont insulin drip * On Amiodarone drip * Cont to monitor * Cont current meds as below * Start Statins * Cont Toprol XL * No ACEI due to low BP * Check fasting lipid profile Review of Systems - Medications/Allergies Allergies/Adverse Reactions: Allergies Allergy/AdvReac Type Severity Reaction Status Date / Time No Known Allergies Allergy Verified 07/22/17 19:48 Medications: Current Medications Acetaminophen (Tylenol) 650 mg PO Q6H PRN PRN Reason: Headache/Fever Or Mild Pain Hydrocodone Bitart/Acetaminophen ([place] 5/325) 1 tab PO Q4H PRN PRN Reason: Mild-Moderate Pain (1-5) Hydrocodone Bitart/Acetaminophen ([place] 5/325) 2 tab PO Q4H PRN PRN Reason: Moderate to Severe Pain (6-10) Last Admin: 07/24/17 14:49 Dose: 2 tab Al Hydroxide/Mg Hydroxide (Maalox) 30 ml PO Q4H PRN PRN Reason: Indigestion Albumin Human (Albumin 5%) 12.5 gm IVPB Q6H PRN PRN Reason: To Maintain SBP> 90 mmHG Stop: 07/24/17 20:47 Albuterol/Ipratropium (Duoneb) 3 ml NEB Q6H PRN PRN Reason: SHORTNESS OF BREATH Albuterol/Ipratropium (Duoneb) 3 ml NEB [id number] [facility] Last Admin: 07/24/17 18:18 Dose: 3 ml Aspirin (Aspirin) 325 mg PO QAM-WM [facility] Last Admin: 07/24/17 08:10 Dose: 325 mg Bisacodyl (Dulcolax) 10 mg PO Q12H PRN PRN Reason: Constipation Bisacodyl (Dulcolax) 10 mg [place] Q12H PRN PRN Reason: Constipation Dextrose/Water (Dextrose 50%) 25 gm SLOW IVP PRN PRN PRN Reason: PER HYPOGLYCEMIC PROTOCOL Famotidine (Pepcid) 20 mg SLOW IVP Q12HR [facility] Last Admin: 07/24/17 08:10 Dose: 20 mg Fentanyl (Sublimaze) 25 mcg SLOW IVP Q2H PRN PRN Reason: Mild-Moderate Pain (1-5) Fentanyl (Sublimaze) 50 mcg SLOW IVP Q2H PRN PRN Reason: Moderate to Severe Pain (6-10) Glucagon (Glucagon) 1 mg SC PRN PRN PRN Reason: PER HYPOGLYCEMIC PROTOCOL Guaifenesin/Dextromethorphan (Robitussin Dm) 15 ml PO Q4H PRN PRN Reason: Cough Hydralazine HCl (Apresoline) 10 mg SLOW IVP Q6H PRN PRN Reason: To Maintain SBP< 140mmHG Dopamine HCl/Dextrose (Dopamine/D5w) 250 mls @ 0 mls/hr IVPB PRN PRN; Protocol ; Titrate PRN Reason: To maintain SBP > 90 mmHG Norepinephrine Bitartrate (Levophed) 250 mls @ 0 mls/hr IVPB PRN PRN; Protocol ; Titrate PRN Reason: To maintain SBP > 90 mmHG Last Admin: 07/23/17 22:07 Dose: 250 mls Nicardipine HCl 25 mg/ Sodium (Chloride) 260 mls @ 0 mls/hr IVPB INF PRN; Protocol; Titrate PRN Reason: To Maintain SBP< 140mmHG Nitroglycerin/Dextrose (Nitroglycerin 50 Mg/250 Ml Bot) 250 mls @ 0 mls/hr IVPB PRN PRN; Protocol; Titrate PRN Reason: To Maintain SBP< 140mmHG Last Admin: 07/23/17 22:07 Dose: 250 mls Phenylephrine HCl ([place]-Synephrine) 250 mls @ 0 mls/hr IVPB PRN PRN; Protocol; Titrate PRN Reason: To maintain SBP > 90 mmHG Insulin Human Regular 100 (units/ Sodium Chloride) 101 mls @ 0 mls/hr IVPB INF MAXIMO; As Directed PRN Reason: Protocol Dextrose/Water (D5w) 1,000 mls @ 0 mls/hr IV INF PRN; As Directed PRN Reason: PRN HYPOGLYCEMIC PROTOCOL Fentanyl (Fentanyl Cadd) 250 mls @ 0 mls/hr IVPB INF MAXIMO; Titrate PRN Reason: Protocol Stop: 08/22/17 21:34 Fentanyl Citrate (Fentanyl Bolus) 250 mls @ 0 mls/hr IVPB PRN PRN; As Directed PRN Reason: Breakthrough pain Stop: 08/22/17 21:34 Ceftriaxone Sodium 1 gm/ (Syringe 0.4 ml/ Sterile Water) 10 mls @ 120 mls/hr SLOW IVP 0900 [facility] Last Admin: 07/24/17 09:03 Dose: 10 mls Insulin Human Regular (Humulin R) 0 units SC Q4H PRN; Protocol PRN Reason: POST OP SLIDING SCALE Ketorolac Tromethamine (Toradol) 30 mg IVP Q6HR [facility] Stop: 07/26/17 23:59 Last Admin: 07/24/17 18:11 Dose: 30 mg Lorazepam (Ativan) 2 mg SLOW IVP Q2H PRN PRN Reason: Anxiety to achieve [place] 2-3 Stop: 08/22/17 21:34 Metoprolol Succinate (Toprol Xl) 25 mg PO DAILY [facility] Last Admin: 07/24/17 08:10 Dose: 25 mg Morphine Sulfate (Morphine) 2 mg IVP Q2H PRN PRN Reason: Breakthrough pain Stop: 08/22/17 21:39 Last Admin: 07/24/17 04:38 Dose: 2 mg Discontinue Previous Narcotic Pain Medications And Benzodiazepines 1 each FS .ONE [facility] Stop: 08/22/17 21:34 Ondansetron HCl (Zofran) 4 mg IVP Q6H PRN PRN Reason: Nausea/Vomiting Potassium Chloride (Kcl) 20 meq IVPB PRN PRN PRN Reason: K level </= 4.0 Last Admin: 07/24/17 04:29 Dose: 20 meq Promethazine HCl (Phenergan) 6.25 mg IM Q4H PRN PRN Reason: Nausea/Vomiting Sodium Chloride (Flush - Normal Saline) 10 ml IVF PRN PRN PRN Reason: Saline Flush
[2017-07-24] MEDS: Insulin Regular 300 UNITS/3 ML VIAL SC PRN (20:06)
[2017-07-25] MEDS: Ketorolac Tromethamine 30 MG/ML VIAL IVP SCH ×3 (05:03→17:54)
[2017-07-25] MEDS: HYDROcodone/Acetaminophen 5/325 mg Tablet PO PRN ×2 (05:13→21:35)
[2017-07-25] MEDS: Insulin Regular 300 UNITS/3 ML VIAL SC PRN ×4 (05:14→17:54)
[2017-07-25 05:24] LABS: #Eosinphils 0.1 thou/uL (0.0-0.7); #Lymphocytes 1.5 thou/uL (1.20-3.40); #Monocytes 0.6 thou/uL (0.11-0.59); #Neutrophils 10.3 thou/uL (1.40-6.50); %Basophils 0.1 % (0.0-1.0); %Eosinophils 0.5 % (0.0-10.0); %Lymphocytes 11.7 % (21.0-51.0); %Monocytes 5.2 % (0.0-10.0); Hematocrit 31.2 % (42.0-52.0); Mean Platelet Volume 8.3 fL (7.4-10.4); White Blood Cell (WBC) Count 12.5 thou/uL (4.8-10.8)
[2017-07-25 05:43] LABS: Anion Gap 9 mmol/L (10-20); BUN (Urea Nitrogen) 14 mg/dL (8.4-25.7); Calc. Creatinine Clearance 113 mL/min (70-130); Calcium 8.2 mg/dL (7.8-10.44); Carbon Dioxide 26 mmol/L (22-29); Chloride 106 mmol/L (98-107); Estimated GFR-MDRD Greater than 90
[2017-07-25] MEDS: Potassium Chloride 20 MEQ/100 ML PREMIX BAG IVPB PRN (06:07)
[2017-07-25] MEDS ORDERED: Furosemide 40 MG/4 ML VIAL SLOW IVP SCH (07:45)
[2017-07-25] MEDS ORDERED: Artificial Tear Sol 15 ML BOT EA EYE PRN (07:46)
[2017-07-25] MEDS ORDERED: Promethazine HCl 25 MG/ML VIAL IM PRN (07:46)
[2017-07-25] MEDS ORDERED: HYDROcodone/Acetaminophen 5/325 mg Tablet PO PRN (07:46)
[2017-07-25] MEDS ORDERED: Bisacodyl 10 MG SUPP PR PRN (07:46)
[2017-07-25] MEDS ORDERED: diphenhydrAMINE 25 MG CAP PO PRN (07:46)
[2017-07-25] MEDS ORDERED: Bisacodyl 5 MG TAB PO PRN (07:46)
[2017-07-25] MEDS ORDERED: Mineral Oil ENEMA PR PRN (07:46)
[2017-07-25] MEDS ORDERED: Nitroglycerin 0.4 MG TAB 1 EACH SL PRN (07:46)
[2017-07-25] MEDS ORDERED: Acetaminophen 325 MG TAB PO PRN (07:46)
[2017-07-25] MEDS ORDERED: Mag-Al 1200 mg/1200 mg/30 ML UDCUP PO PRN (07:46)
[2017-07-25] MEDS ORDERED: Milk Of Magnesia 30 ML UDCUP PO PRN (07:46)
[2017-07-25] MEDS ORDERED: Fentanyl 100 MCG/2 ML VIAL SLOW IVP PRN ×2 (07:46)
[2017-07-25] MEDS ORDERED: Ondansetron HCl/PF 4 MG/2 ML Vial IVP PRN (07:46)
[2017-07-25] MEDS ORDERED: Guaifenesin DM 100-10/5 ML UDCUP PO PRN (07:46)
[2017-07-25] MEDS ORDERED: Zolpidem Tartrate 5 MG TAB PO PRN (07:46)
[2017-07-25] MEDS ORDERED: cefTRIAXone\\ROCEPHIN 1 GM in Sodium Chloride 0.9% 100 ML IVPB SCH (08:00)
[2017-07-25] MEDS ORDERED: Dextrose 5% in Water 1,000 ML IV PRN (08:04)
[2017-07-25] MEDS ORDERED: Dextrose 50% Abboject 50 ML SYRINGE SLOW IVP PRN (08:04)
--- NOTE | 2017-07-25 08:47 | RAD ---
AP VIEW CHEST: 07/25/2017 HISTORY: AP view chest status post open heart surgery. COMPARISON: 07/24/2017 FINDINGS: AP view chest demonstrates sternotomy wires seen. A right subclavian central line is seen. The francisco ent has been extubated. Small bilateral pleural effusions are seen. Pulmonary vascular congestion i s also noted. IMPRESSION: 1. Small bilateral pleural effusions. 2. Interval extubation of the patient. 3. Pulmonary vascular congestion. POS: [facility]
[2017-07-25] MEDS ORDERED: Famotidine 20 MG TAB PO SCH (09:00)
[2017-07-25] MEDS: Aspirin 325 mg Enteric Coated Tablet PO SCH (09:54)
[2017-07-25] MEDS: Famotidine 20 MG TAB PO SCH ×2 (09:54→21:30)
[2017-07-25] MEDS: Potassium Chloride 20 MEQ TAB PO SCH (09:55)
[2017-07-25] MEDS: cefTRIAXone\\ROCEPHIN 1 GM, Syringe 0.4 ML in Sterile Water 9.6 ML SLOW IVP SCH (09:55)
[2017-07-25 14:37] LABS: Hemoglobin A1c 7.7 % (4.0-6.0)
--- NOTE | 2017-07-25 20:48 | PDOC.PN ---
- Subjective Encounter Start Date: 07/25/17 Encounter Start Time: 16:00 Patient seen and examined. No new complaints. No overnight events. No CP - Objective MAR Reviewed: Yes Vital Signs & Weight: Vital Signs (12 hours) Temp Pulse Pulse BP BP Pulse Ox Pulse Ox 07/25/17 16:00 98.2 F 07/25/17 14:02 95 95 110/67 103/60 96 93 L 07/25/17 12:00 98.4 F 07/25/17 09:08 95 95 103/60 110/67 93 L 96 Weight Weight 162 lb 0.636 oz Most Recent Monitor Data Heart Rate from ECG 101 NIBP 146/70 NIBP BP-Mean 101 Respiration from ECG 26 SpO2 96 I&O: 07/24/17 07/25/17 07/26/17 06:59 06:59 06:59 Intake Total 1601.9 1966 870 Output Total 1860 1405 1460 Balance -258.1 561 -590 Result Diagrams: 07/25/17 05:00 07/25/17 05:00 Additional Labs: Accuchecks 07/25/17 07/25/17 07/25/17 17:30 13:13 09:58 POC Glucose 201 H 349 H 158 H 07/25/17 05:09 POC Glucose 130 H EKG Reviewed by me: Yes (Tele SR) Phys Exam - Physical Examination Constitutional: NAD Respiratory: no wheezing, no rhonchi Cardiovascular: RRR, no rub Gastrointestinal: soft, non-tender, positive bowel sounds Musculoskeletal: no edema Neurological: moves all 4 limbs Dx/Plan - Plan DVT proph w/SCDs IMPRESSION: 1. CP/ACS 2. CAD s/p emergent CABG 3. HTN 4. DM2 - A1c 7.7 5. GERD 6. DEANN - resolved. PLAN: * Resume Metformin * Add Levemir 10 units daily * Cont to monitor * Cont current meds as below * Cont Toprol XL - dose increased * No ACEI due to low BP Review of Systems - Medications/Allergies Allergies/Adverse Reactions: Allergies Allergy/AdvReac Type Severity Reaction Status Date / Time No Known Allergies Allergy Verified 07/22/17 19:48 Medications: Current Medications Acetaminophen (Tylenol) 650 mg PO Q6H PRN PRN Reason: Headache/Fever or Pain Hydrocodone Bitart/Acetaminophen ([place] 5/325) 1 tab PO Q4H PRN PRN Reason: Moderate Pain (4-6) Hydrocodone Bitart/Acetaminophen ([place] 5/325) 2 tab PO Q4H PRN PRN Reason: Severe Pain (7-10) Al Hydroxide/Mg Hydroxide (Maalox) 30 ml PO Q4H PRN PRN Reason: Indigestion Albuterol/Ipratropium (Duoneb) 3 ml NEB [id number] PRN PRN Reason: Respiratory Distress Artificial Tears (Tears Renewed 15ml Bottle) 0 drop EA EYE PRN PRN PRN Reason: Dry Eyes Aspirin (Ecotrin) 325 mg PO DAILY [facility] Last Admin: 07/25/17 09:54 Dose: 325 mg Atorvastatin Calcium (Lipitor) 40 mg PO HS [facility] Bisacodyl (Dulcolax) 10 mg PO Q12H PRN PRN Reason: Constipation Bisacodyl (Dulcolax) 10 mg [place] Q12H PRN PRN Reason: Constipation Dextrose/Water (Dextrose 50%) 25 gm SLOW IVP PRN PRN PRN Reason: PER HYPOGLYCEMIC PROTOCOL Diphenhydramine HCl (Benadryl) 25 mg PO Q6H PRN PRN Reason: Itching & Insomnia or Puneet Hussein Famotidine (Pepcid) 20 mg PO BID [facility] Last Admin: 07/25/17 09:54 Dose: 20 mg Fentanyl (Sublimaze) 25 mcg SLOW IVP Q2H PRN PRN Reason: Moderate breakthrough pain Fentanyl (Sublimaze) 50 mcg SLOW IVP Q2H PRN PRN Reason: Severe breakthrough pain Furosemide (Lasix) 40 mg PO DAILY [facility] Glucagon (Glucagon) 1 mg SC PRN PRN PRN Reason: PER HYPOGLYCEMIC PROTOCOL Guaifenesin/Dextromethorphan (Robitussin Dm) 15 ml PO Q4H PRN PRN Reason: Cough Hydralazine HCl (Apresoline) 10 mg SLOW IVP Q6H PRN PRN Reason: To Maintain SBP< 140mmHG Dextrose/Water (D5w) 1,000 mls @ 0 mls/hr IV INF PRN; As Directed PRN Reason: PRN HYPOGLYCEMIC PROTOCOL Ceftriaxone Sodium 1 gm/ (Syringe 0.4 ml/ Sterile Water) 10 mls @ 120 mls/hr SLOW IVP Q24HR@0900 [facility] Last Admin: 07/25/17 09:55 Dose: 10 mls Insulin Detemir 10 units/ (Miscellaneous Medication) 0.1 mls @ 0 mls/[facility] Insulin Human Regular (Humulin R) 0 units SC Q4H PRN; Protocol PRN Reason: POST OP SLIDING SCALE Last Admin: 07/25/17 17:54 Dose: 6 unit Ketorolac Tromethamine (Toradol) 30 mg IVP Q6HR [facility] Stop: 07/26/17 23:59 Last Admin: 07/25/17 17:54 Dose: 30 mg Magnesium Hydroxide (Milk Of Magnesium) 30 ml PO Q12H PRN PRN Reason: Constipation Metformin HCl (Glucophage) 500 mg PO BID-[facility] Metoprolol Succinate (Toprol Xl) 25 mg PO BID [facility] Mineral Oil (Fleet Mineral Oil) 133 ml [place] DAILYPRN PRN PRN Reason: Constipation Nitroglycerin (Nitrostat) 0.4 mg SL Q5MIN PRN PRN Reason: Chest Pain Ondansetron HCl (Zofran) 4 mg IVP Q6H PRN PRN Reason: Nausea/Vomiting Potassium Chloride (K-Dur) 20 meq PO QAM-[facility] Last Admin: 07/25/17 09:55 Dose: 20 meq Promethazine HCl (Phenergan) 6.25 mg IM Q4H PRN PRN Reason: Nausea/Vomiting Sodium Chloride (Flush - Normal Saline) 10 ml IVF PRN PRN PRN Reason: Saline Flush Zolpidem Tartrate (Ambien) 5 mg PO HSPRN PRN PRN Reason: Insomnia
[2017-07-25] MEDS: Atorvastatin Calcium 40 MG TAB PO SCH (21:30)
[2017-07-26] MEDS: Ketorolac Tromethamine 30 MG/ML VIAL IVP SCH ×4 (00:59→18:13)
[2017-07-26] MEDS: Insulin Regular 300 UNITS/3 ML VIAL SC PRN ×3 (08:30→18:13)
[2017-07-26] MEDS: Famotidine 20 MG TAB PO SCH ×2 (08:31→20:53)
[2017-07-26] MEDS: Insulin Detemir 100 UNITS/ML 10 UNITS in Pre-Filled Syringe 1 EACH SC SCH ×2 (08:31→20:53)
[2017-07-26] MEDS: Potassium Chloride 20 MEQ TAB PO SCH (08:31)
[2017-07-26] MEDS: Aspirin 325 mg Enteric Coated Tablet PO SCH (08:31)
[2017-07-26] MEDS: metFORMIN 500 MG TAB PO SCH ×2 (08:31→18:13)
[2017-07-26] MEDS: Furosemide 40 MG TAB PO SCH (08:31)
[2017-07-26] MEDS: cefTRIAXone\\ROCEPHIN 1 GM, Syringe 0.4 ML in Sterile Water 9.6 ML SLOW IVP SCH (08:32)
[2017-07-26] MEDS: Atorvastatin Calcium 40 MG TAB PO SCH (20:53)
--- NOTE | 2017-07-26 21:46 | PDOC.PN ---
- Subjective Encounter Start Date: 07/26/17 Encounter Start Time: 16:30 Patient seen and examined. No new complaints. No overnight events - Objective MAR Reviewed: Yes Vital Signs & Weight: Vital Signs (12 hours) Temp Pulse Pulse Pulse Resp BP BP 07/26/17 16:00 98.2 F 91 24 H 07/26/17 11:51 97.8 F 93 20 07/26/17 10:58 95 93 125/63 134/85 BP Pulse Ox Pulse Ox Pulse Ox 07/26/17 16:00 142/83 H 94 L 07/26/17 11:51 131/64 93 L 07/26/17 10:58 96 95 Weight Weight 166 lb Most Recent Monitor Data Heart Rate from ECG 101 NIBP 146/70 NIBP BP-Mean 101 Respiration from ECG 26 SpO2 96 I&O: 07/25/17 07/26/17 07/27/17 06:59 06:59 06:59 Intake Total 1966 1350 1200 Output Total 1405 1865 1475 Balance 789 -037 -606 Result Diagrams: 07/25/17 05:00 07/25/17 05:00 Additional Labs: Accuchecks 07/26/17 07/26/17 07/26/17 20:16 17:15 11:16 POC Glucose 203 H 143 H 238 H 07/26/17 07:42 POC Glucose 211 H EKG Reviewed by me: Yes (Tele SR) Phys Exam - Physical Examination Constitutional: NAD Respiratory: no wheezing, no rhonchi Cardiovascular: RRR, no rub Gastrointestinal: soft, non-tender, positive bowel sounds Musculoskeletal: no edema Dx/Plan - Plan DVT proph w/SCDs IMPRESSION: 1. CP/ACS 2. CAD s/p emergent CABG 3. HTN 4. DM2 - A1c 7.7 5. GERD 6. DEANN - resolved. PLAN: * Cont Metformin * change Levemir 10 units BID * Cont to monitor * Cont current meds as below * Cont Toprol XL Review of Systems - Review of Systems Cardiovascular: negative: chest pain, palpitations, orthopnea, paroxysmal nocturnal dyspnea, edema, light headedness Gastrointestinal: negative: Nausea, Vomiting, Abdominal Pain, Diarrhea, Constipation, Melena, Hematochezia - Medications/Allergies Allergies/Adverse Reactions: Allergies Allergy/AdvReac Type Severity Reaction Status Date / Time No Known Allergies Allergy Verified 07/22/17 19:48 Medications: Current Medications Acetaminophen (Tylenol) 650 mg PO Q6H PRN PRN Reason: Headache/Fever or Pain Hydrocodone Bitart/Acetaminophen ([place] 5/325) 1 tab PO Q4H PRN PRN Reason: Moderate Pain (4-6) Hydrocodone Bitart/Acetaminophen ([place] 5/325) 2 tab PO Q4H PRN PRN Reason: Severe Pain (7-10) Last Admin: 07/25/17 21:35 Dose: 2 tab Al Hydroxide/Mg Hydroxide (Maalox) 30 ml PO Q4H PRN PRN Reason: Indigestion Albuterol/Ipratropium (Duoneb) 3 ml NEB [id number] PRN PRN Reason: Respiratory Distress Artificial Tears (Tears Renewed 15ml Bottle) 0 drop EA EYE PRN PRN PRN Reason: Dry Eyes Aspirin (Ecotrin) 325 mg PO DAILY [facility] Last Admin: 07/26/17 08:31 Dose: 325 mg Atorvastatin Calcium (Lipitor) 40 mg PO HS [facility] Last Admin: 07/26/17 20:53 Dose: 40 mg Bisacodyl (Dulcolax) 10 mg PO Q12H PRN PRN Reason: Constipation Bisacodyl (Dulcolax) 10 mg [place] Q12H PRN PRN Reason: Constipation Dextrose/Water (Dextrose 50%) 25 gm SLOW IVP PRN PRN PRN Reason: PER HYPOGLYCEMIC PROTOCOL Diphenhydramine HCl (Benadryl) 25 mg PO Q6H PRN PRN Reason: Itching & Insomnia or Puneet Hussein Famotidine (Pepcid) 20 mg PO BID [facility] Last Admin: 07/26/17 20:53 Dose: 20 mg Fentanyl (Sublimaze) 25 mcg SLOW IVP Q2H PRN PRN Reason: Moderate breakthrough pain Fentanyl (Sublimaze) 50 mcg SLOW IVP Q2H PRN PRN Reason: Severe breakthrough pain Furosemide (Lasix) 40 mg PO DAILY [facility] Last Admin: 07/26/17 08:31 Dose: 40 mg Glucagon (Glucagon) 1 mg SC PRN PRN PRN Reason: PER HYPOGLYCEMIC PROTOCOL Guaifenesin/Dextromethorphan (Robitussin Dm) 15 ml PO Q4H PRN PRN Reason: Cough Hydralazine HCl (Apresoline) 10 mg SLOW IVP Q6H PRN PRN Reason: To Maintain SBP< 140mmHG Dextrose/Water (D5w) 1,000 mls @ 0 mls/hr IV INF PRN; As Directed PRN Reason: PRN HYPOGLYCEMIC PROTOCOL Insulin Detemir 10 units/ (Miscellaneous Medication) 0.1 mls @ 0 mls/hr [facility] [place] [place] Last Admin: 07/26/17 08:31 Dose: 0.1 mls Insulin Detemir 10 units/ (Miscellaneous Medication) 0.1 mls @ 0 mls/hr SC [facility] Last Admin: 07/26/17 20:53 Dose: 0.1 mls Insulin Human Regular (Humulin R) 0 units SC Q4H PRN; Protocol PRN Reason: POST OP SLIDING SCALE Last Admin: 07/26/17 18:13 Dose: 3 unit Ketorolac Tromethamine (Toradol) 30 mg IVP Q6HR [facility] Stop: 07/26/17 23:59 Last Admin: 07/26/17 18:13 Dose: 30 mg Magnesium Hydroxide (Milk Of Magnesium) 30 ml PO Q12H PRN PRN Reason: Constipation Metformin HCl (Glucophage) 500 mg PO BID-[facility] Last Admin: 07/26/17 18:13 Dose: 500 mg Metoprolol Succinate (Toprol Xl) 25 mg PO BID [facility] Last Admin: 07/26/17 20:53 Dose: 25 mg Mineral Oil (Fleet Mineral Oil) 133 ml [place] DAILYPRN PRN PRN Reason: Constipation Nitroglycerin (Nitrostat) 0.4 mg SL Q5MIN PRN PRN Reason: Chest Pain Ondansetron HCl (Zofran) 4 mg IVP Q6H PRN PRN Reason: Nausea/Vomiting Potassium Chloride (K-Dur) 20 meq PO QAM-[facility] Last Admin: 07/26/17 08:31 Dose: 20 meq Promethazine HCl (Phenergan) 6.25 mg IM Q4H PRN PRN Reason: Nausea/Vomiting Sodium Chloride (Flush - Normal Saline) 10 ml IVF PRN PRN PRN Reason: Saline Flush Last Admin: 07/26/17 08:32 Dose: 10 ml Zolpidem Tartrate (Ambien) 5 mg PO HSPRN PRN PRN Reason: Insomnia
[2017-07-27] MEDS: Ketorolac Tromethamine 30 MG/ML VIAL IVP SCH (00:12)
[2017-07-27] MEDS: Potassium Chloride 20 MEQ TAB PO SCH (09:18)
[2017-07-27] MEDS: Aspirin 325 mg Enteric Coated Tablet PO SCH (09:18)
[2017-07-27] MEDS: metFORMIN 500 MG TAB PO SCH ×2 (09:18→16:45)
[2017-07-27] MEDS: Furosemide 40 MG TAB PO SCH (09:19)
[2017-07-27] MEDS: Insulin Detemir 100 UNITS/ML 10 UNITS in Pre-Filled Syringe 1 EACH SC SCH ×2 (09:19→21:11)
[2017-07-27] MEDS: Famotidine 20 MG TAB PO SCH ×2 (09:19→21:10)
[2017-07-27] MEDS: HYDROcodone/Acetaminophen 5/325 mg Tablet PO PRN ×3 (09:21→21:10)
--- NOTE | 2017-07-27 16:41 | PDOC.PN ---
- Subjective Encounter Start Date: 07/27/17 Encounter Start Time: 15:00 Patient seen and examined. No new complaints. No overnight events - Objective MAR Reviewed: Yes Vital Signs & Weight: Vital Signs (12 hours) Temp Pulse Pulse Pulse Resp BP BP 07/27/17 16:00 98.1 F 88 23 H 07/27/17 11:53 97.8 F 61 20 07/27/17 11:37 84 80 125/65 125/65 07/27/17 09:30 91 91 120/59 L 129/66 07/27/17 08:35 97.8 F 61 20 07/27/17 08:17 97 F L 90 19 BP Pulse Ox Pulse Ox Pulse Ox 07/27/17 16:00 146/70 H 96 07/27/17 11:53 116/75 96 07/27/17 11:37 96 95 07/27/17 09:30 96 97 07/27/17 08:35 07/27/17 08:17 137/60 97 Weight Weight 168 lb Most Recent Monitor Data Heart Rate from ECG 101 NIBP 146/70 NIBP BP-Mean 101 Respiration from ECG 26 SpO2 96 I&O: 07/26/17 07/27/17 07/28/17 06:59 06:59 06:59 Intake Total 1350 1440 Output Total 1860 1575 Balance -510 -135 Result Diagrams: 07/25/17 05:00 07/25/17 05:00 Additional Labs: Accuchecks 07/27/17 07/27/17 07/27/17 10:41 06:42 02:24 POC Glucose 243 H 123 H 146 H 07/26/17 07/26/17 20:16 17:15 POC Glucose 203 H 143 H EKG Reviewed by me: Yes (Tele SR) Phys Exam - Physical Examination Constitutional: NAD Respiratory: no wheezing, no rhonchi Cardiovascular: RRR, no rub Gastrointestinal: soft, non-tender, positive bowel sounds Musculoskeletal: no edema Neurological: moves all 4 limbs Dx/Plan - Plan DVT proph w/SCDs IMPRESSION: 1. CP/ACS 2. CAD s/p emergent CABG 3. HTN 4. DM2 - A1c 7.7 5. GERD 6. DEANN - resolved. PLAN: * Increase Metformin to 1000 mg BID * Cont Levemir 10 units BID * Cont to monitor * Cont current meds as below * Cont Toprol XL * Add Losartan at 25 mg daily * DC planning Review of Systems - Review of Systems Respiratory: negative: Cough, Dry, Shortness of Breath, Hemoptysis, SOB with Excertion, Pleuritic Pain, Sputum, Wheezing Cardiovascular: negative: chest pain, palpitations, orthopnea, paroxysmal nocturnal dyspnea, edema, light headedness - Medications/Allergies Allergies/Adverse Reactions: Allergies Allergy/AdvReac Type Severity Reaction Status Date / Time No Known Allergies Allergy Verified 07/22/17 19:48 Medications: Current Medications Acetaminophen (Tylenol) 650 mg PO Q6H PRN PRN Reason: Headache/Fever or Pain Hydrocodone Bitart/Acetaminophen ([place] 5/325) 1 tab PO Q4H PRN PRN Reason: Moderate Pain (4-6) Hydrocodone Bitart/Acetaminophen ([place] 5/325) 2 tab PO Q4H PRN PRN Reason: Severe Pain (7-10) Last Admin: 07/27/17 09:21 Dose: 2 tab Al Hydroxide/Mg Hydroxide (Maalox) 30 ml PO Q4H PRN PRN Reason: Indigestion Albuterol/Ipratropium (Duoneb) 3 ml NEB [id number] PRN PRN Reason: Respiratory Distress Artificial Tears (Tears Renewed 15ml Bottle) 0 drop EA EYE PRN PRN PRN Reason: Dry Eyes Aspirin (Ecotrin) 325 mg PO DAILY [facility] Last Admin: 07/27/17 09:18 Dose: 325 mg Atorvastatin Calcium (Lipitor) 40 mg PO HS [facility] Last Admin: 07/26/17 20:53 Dose: 40 mg Bisacodyl (Dulcolax) 10 mg PO Q12H PRN PRN Reason: Constipation Last Admin: 07/27/17 09:21 Dose: 10 mg Bisacodyl (Dulcolax) 10 mg [place] Q12H PRN PRN Reason: Constipation Dextrose/Water (Dextrose 50%) 25 gm SLOW IVP PRN PRN PRN Reason: PER HYPOGLYCEMIC PROTOCOL Diphenhydramine HCl (Benadryl) 25 mg PO Q6H PRN PRN Reason: Itching & Insomnia or Puneet Hussein Famotidine (Pepcid) 20 mg PO BID [facility] Last Admin: 07/27/17 09:19 Dose: 20 mg Fentanyl (Sublimaze) 25 mcg SLOW IVP Q2H PRN PRN Reason: Moderate breakthrough pain Fentanyl (Sublimaze) 50 mcg SLOW IVP Q2H PRN PRN Reason: Severe breakthrough pain Glucagon (Glucagon) 1 mg SC PRN PRN PRN Reason: PER HYPOGLYCEMIC PROTOCOL Guaifenesin/Dextromethorphan (Robitussin Dm) 15 ml PO Q4H PRN PRN Reason: Cough Last Admin: 07/27/17 09:22 Dose: 15 ml Hydralazine HCl (Apresoline) 10 mg SLOW IVP Q6H PRN PRN Reason: To Maintain SBP< 140mmHG Dextrose/Water (D5w) 1,000 mls @ 0 mls/hr IV INF PRN; As Directed PRN Reason: PRN HYPOGLYCEMIC PROTOCOL Insulin Detemir 10 units/ (Miscellaneous Medication) 0.1 mls @ 0 mls/hr SC [facility] Last Admin: 07/27/17 09:19 Dose: 0.1 mls Insulin Detemir 10 units/ (Miscellaneous Medication) 0.1 mls @ 0 mls/hr SC HS [facility] Last Admin: 07/26/17 20:53 Dose: 0.1 mls Insulin Human Regular (Humulin R) 0 units [place] Q4H PRN; Protocol PRN Reason: POST OP SLIDING SCALE Last Admin: 07/26/17 18:13 Dose: 3 unit Losartan Potassium (Cozaar) 25 mg PO DAILY [facility] Magnesium Hydroxide (Milk Of Magnesium) 30 ml PO Q12H PRN PRN Reason: Constipation Metformin HCl (Glucophage) 1,000 mg PO BID-[facility] Metoprolol Succinate (Toprol Xl) 25 mg PO BID [facility] Last Admin: 07/27/17 09:19 Dose: 25 mg Mineral Oil (Fleet Mineral Oil) 133 ml [place] DAILYPRN PRN PRN Reason: Constipation Nitroglycerin (Nitrostat) 0.4 mg SL Q5MIN PRN PRN Reason: Chest Pain Ondansetron HCl (Zofran) 4 mg IVP Q6H PRN PRN Reason: Nausea/Vomiting Promethazine HCl (Phenergan) 6.25 mg IM Q4H PRN PRN Reason: Nausea/Vomiting Sodium Chloride (Flush - Normal Saline) 10 ml IVF PRN PRN PRN Reason: Saline Flush Last Admin: 07/26/17 08:32 Dose: 10 ml Zolpidem Tartrate (Ambien) 5 mg PO HSPRN PRN PRN Reason: Insomnia
[2017-07-27] MEDS: Atorvastatin Calcium 40 MG TAB PO SCH (21:10)
[2017-07-28 07:39] VITALS: BP 126/67; TEMP 97.9
[2017-07-28] MEDS: metFORMIN 500 MG TAB PO SCH (08:38)
[2017-07-28] MEDS: Aspirin 325 mg Enteric Coated Tablet PO SCH (08:38)
[2017-07-28] MEDS: Famotidine 20 MG TAB PO SCH (08:38)
--- NOTE | 2017-07-28 08:48 | DIS ---
DISCHARGE DISPOSITION: Home. FOLLOWUP: Follow up with primary care physician, Dr. Tariq in 1 week. Follow up with Cardiology, Marjorie Smith and Dr. Chowdhury as scheduled. Outpatient cardiac rehabilitation. ALLERGIES: Patient denies any drug allergies. The patient was seen and examined on the day of discharge. Denies any new complaints. No chest pain , shortness of breath, palpitations. DISCHARGE MEDICATIONS: 1. Aspirin 325 mg daily. 2. Lipitor 40 mg at bedtime. 3. Nexium 40 mg daily. 4. [place] as needed. 5. Lantus 15 units daily. 6. Cozaar 25 mg daily. 7. Metformin 1000 mg b.i.d. 8. Toprol-XL 25 mg b.i.d. INPATIENT CONSULTANTS: 1. Cardiology, Dr. Smith. 2. Cardiothoracic, Dr. Chowdhury. BRIEF HOSPITAL COURSE: The patient is a 56-year-old male with diabetes mellitus type 2 and hypertension who presented to the hospital with chest discomfort. His initial troponins were in the indeterminate range with maximum troponin of 0.087. Please refer to the history and physical dated 1 09/22/2016 for further details. The patient was admitted to the hospital with the diagnosis of chest discomfort, rule out acute coron michael syndrome. His serial cardiac enzymes were in indeterminate range as discussed above. A stress t est was performed during which the patient developed chest discomfort requiring emergent cardiac cath eterization. The cardiac catheterization showed severe three-vessel disease requiring emergent coron michael artery bypass grafting by Dr. Chowdhury on of 07/23/2017. He was monitored in the Intensive Care Un it postoperatively. He has been doing well over the last 24-48 hours on the telemetry unit. He has been cleared by consultants for discharge. He was advised to follow up with Cardiology next week. P liliana of care was discussed with the patient in detail. He stated understanding. FINAL DIAGNOSES: 1. Chest discomfort. 2. Indeterminate troponins. 3. Acute coronary syndrome requiring emergent catheterization/coronary artery bypass graft x4. 4. Acute kidney injury on admission, resolved. 5. Diabetes mellitus type 2, and A1c 7.7. Due to elevated blood sugar. He has been started on insu branden. 6. Gastroesophageal reflux disease. 7. Lifestyle modification was emphasized. SIGNIFICANT LABORATORIES: BNP was 98.9. CBC on admission showed WBC 7.8 with hemoglobin 13.2.
[2017-07-28] MEDS ORDERED: Losartan Potassium 25 MG TAB PO SCH (09:00)
[2017-07-28] MEDS: Insulin Detemir 100 UNITS/ML 10 UNITS in Pre-Filled Syringe 1 EACH SC SCH (10:12)
[2017-07-29 15:15] LABS: Oxyhemoglobin 98.2 % (94.0-97.0); Sodium 138 mmol/L (135-148)
[2017-07-29 15:15] LABS: Sodium 136 mmol/L (135-148)
[2017-07-29 15:18] LABS: Oxyhemoglobin 98.1 % (94.0-97.0); Sodium 139 mmol/L (135-148)
[2017-07-29 15:18] LABS: Sodium 137 mmol/L (135-148)
[2017-07-29 15:18] LABS: Base Excess -1.3 mEq/L (0 (+/- 2.5)); pH (venous) 7.36 (7.35-7.45)
[2017-07-30 08:07] LABS: Mode OR ABG; Vent YES
[2017-07-30 08:07] LABS: Mode OR ABG; Vent YES
[2017-07-30 08:08] LABS: Mode OR ABG; Vent YES
[2017-07-30 08:08] LABS: Mode OR ABG; Vent YES
[2017-07-30 08:45] LABS: Oxyhemoglobin 98.3 % (94.0-97.0); Sodium 138 mmol/L (135-148)
[2017-07-30 08:46] LABS: Mode OR ABG; Vent YES
== END 2017-07-28 11:26 | disposition home or self-care (01) | DRG 233 ==
LOC: ERS 14:43 → 2SW 19:39 → OBSVTOIN 19:39 → CCU 07-23 11:27 → 2NO 07-25 19:58
PROVIDERS: ADMIT Internal Medicine; ATTEND Internal Medicine
PROC: 02100Z9 Bypass Coronary Artery, One Artery from Left Internal Mammary, Open Approach (ICD-10-PCS; principal; 2017-07-23)
PROC: 021209W Bypass Coronary Artery, Three Arteries from Aorta with Autologous Venous Tissue, Open Approach (ICD-10-PCS; 2017-07-23)
PROC: 06BQ4ZZ Excision of Left Saphenous Vein, Percutaneous Endoscopic Approach (ICD-10-PCS; 2017-07-23)
PROC: 5A1221Z Performance of Cardiac Output, Continuous (ICD-10-PCS; 2017-07-23)
PROC: 4A023N7 Measurement of Cardiac Sampling and Pressure, Left Heart, Percutaneous Approach (ICD-10-PCS; 2017-07-23)
PROC: B2111ZZ Fluoroscopy of Multiple Coronary Arteries using Low Osmolar Contrast (ICD-10-PCS; 2017-07-23)
PROC: B2151ZZ Fluoroscopy of Left Heart using Low Osmolar Contrast (ICD-10-PCS; 2017-07-23)
DX: I21.19 ST elevation (STEMI) myocardial infarction involving other coronary artery of inferior wall (principal); J18.9 Pneumonia, unspecified organism; N17.9 Acute kidney failure, unspecified; E11.9 Type 2 diabetes mellitus without complications; I25.10 Atherosclerotic heart disease of native coronary artery without angina pectoris; K21.9 Gastro-esophageal reflux disease without esophagitis; Z79.84 Long term (current) use of oral hypoglycemic drugs; Z82.49 Family history of ischemic heart disease and other diseases of the circulatory system
CPT/HCPCS: 36415; 36416; 36430; 71010; 76942; 78451; 80048; 80053; 80061; 82553; 82805; 83036; 83690; 83735; 83880; 84484; 85025; 85610; 85730; 86850; 86900; 86901; 93005; 93010; 93017; 93306; 93458; 93798; 94002; 94003; 94150; 94640; 94760; 96360; A4216; A9500; C1769; C1887; J0153; J0282; J0696; J1265; J1644; J1650; J1815; J1885; J1940; J2001; J2150; J2250; J2270; J2440; J2704; J2720; J3010; J3370; J3475; J3480; J7050; J7070; J7620; P9016; P9045; S0017; S0028

== ENCOUNTER 2019-10-25 21:37 | Emergency (ER) | payer SELFPAY ==
[2019-10-25] MEDS ORDERED: HYDROcodone/Acetaminophen 10/325 mg Tablet ONE (21:56)
== END 2019-10-25 22:03 | disposition home or self-care (01) ==
LOC: ERS 21:37
DX: K02.9 Dental caries, unspecified (principal); I10 Essential (primary) hypertension; E11.9 Type 2 diabetes mellitus without complications; Z79.84 Long term (current) use of oral hypoglycemic drugs; Z79.899 Other long term (current) drug therapy
CPT/HCPCS: 99282